=== PATIENT | male | born 1945 | race Caucasian/White ===

== ENCOUNTER 2020-08-30 09:53 | Day surgery (SDC) | payer OTHER ==
[~2020-08-30 09:53] MED LIST: Acetaminophen 325 MG Tab PO PRN; Cataract Ophth Solution EYELF ONE; Moxifloxacin 0.5% Ophth Soln 3 ML Bottle EYELF ONE; Ondansetron 4 MG/2 ML SDV IVPUSH PRN; Phenylephrine 10% Ophth Soln 5 ML Bot EYELF ONE; Phenylephrine 10% Ophth Soln 5 ML Bot EYELF PRN; Povidone-Iodine 5% Sterile Ophth Soln 30 ML Bottle EYELF ONE; Proparacaine 0.5% Ophth Soln 15 ML Bottle EYELF ONE; Sodium Chloride 0.9% 10 ML Syringe FLUSH PRN; Timolol Maleate 0.5% Ophth Soln 5 ML Bottle EYELF ONE; Tropicamide 1% Ophth Soln 15 ML Bottle EYELF ONE
[2020-08-30] MEDS ORDERED: Sodium Chloride 0.9% 10 ML Syringe IV ONE (09:54)
[2020-08-30] MEDS ORDERED: Dexamethasone 4 MG/ML SDV IV ONE (09:54)
[2020-08-30] MEDS ORDERED: Midazolam 1 MG/ML 2 ML SDV IV ONE (09:54)
[2020-08-30] MEDS ORDERED: Tetracaine HCl/PF 0.5% 4 ML Bottle EYELF ONE (10:51)
[2020-08-30] MEDS ORDERED: Lidocaine 1% 30 ML SDV ONE (10:51)
[2020-08-30] MEDS ORDERED: Povidone-Iodine 5% Sterile Ophth Soln 30 ML Bottle EYELF ONE (10:51)
[2020-08-30] MEDS ORDERED: Dexamethasone/Neomycin/Polymyxin B Ophth Oint 3.5 GM Tube EYELF ONE (10:52)
[2020-08-30] MEDS ORDERED: Chondroitin Sulfate/Hyaluronate Sodium Ophth Inj 0.75 ML Syringe EYELF ONE (10:52)
[2020-08-30] MEDS ORDERED: Diclofenac Sodium 0.1% Ophth Soln 5 ML Bottle EYELF ONE (10:52)
[2020-08-30] MEDS ORDERED: Balanced Salt Solution Ophth Irrig 500 ML Bottle IOCULAR ONE (10:52)
[2020-08-30] MEDS ORDERED: Vancomycin 500 MG SDV EYELF ONE (10:52)
[2020-08-30] MEDS ORDERED: Apraclonidine 0.5% Ophth Soln 5 ML Bot EYELF ONE (10:52)
[2020-08-30 12:25] VITALS: BP 146/72
[2020-08-30 12:26] VITALS: PULSE 49
--- NOTE | 2020-08-30 14:27 | OR ---
DATE: 08/30/2020 PREOPERATIVE DIAGNOSIS: Visually significant mixed cataract, left eye. POSTOPERATIVE DIAGNOSIS: Visually significant mixed cataract, left eye. PROCEDURE: Extracapsular cataract extraction with intraocular lens implant, left eye. ANESTHESIA: Topical/local MAC. COMPLICATIONS: None. INDICATION: Mr. Webster was seen in the clinic. He is unhappy with his vision noticing a progressive change. He has difficulty seeing television, difficulty driving, difficulty seeing street signs. His examination revealed mixed cataract. I explained options, offered cataract surgery, and I explained risks including, but not limited to infection, retinal detachment, loss of vision, need for additional surgery, and risks associated with anesthesia amongst others. We discussed implant options. He has requested a toric implant. He understands that he may still require glasses for some activities especially near work. He has voiced understanding with respect to risks and wished to proceed. OPERATIVE DESCRIPTION: After informed consent was obtained and the risks, benefits, and alternatives were explained, the patient was brought to the operative suite and topical anesthesia was administered. The patient was then prepped and draped in the sterile fashion and attention was placed on the left eye. A sterile lid speculum was placed into the left eye to allow operative exposure. A full-thickness paracentesis was made in the temporal portion of the operative eye. Preservative-free lidocaine 0.1 mL was injected into the anterior chamber followed by viscoelastic. A full-thickness corneal incision was then made into the anterior chamber. A bent needle cystotome was used to create a small heather in the anterior capsule. The capsulorrhexis forceps was then used to create a 360-degree curvilinear capsulorrhexis. The nucleus was then removed using a phacoemulsification handpiece and the remaining cortical material was then removed with irrigation and aspiration handpiece. Following removal of the cortical material, the capsular bag was then inspected and noted to be free of any holes or tears. Viscoelastic was then injected into the capsular bag and the intraocular lens was inserted into the capsular bag. The implant was oriented to correspond with preoperative corneal finnegan made with the patient in the upright position. The viscoelastic material was then removed from both the anterior and posterior chambers and from behind the IOL. The lens and capsular bag were then reinspected. The IOL was well centered and the capsular bag intact. The wound and paracentesis sites were inspected and hydrated with balanced saline solution. Both were found to be self-sealing. The intraocular pressure was assessed digitally and found to be within normal range. A good red reflex was noted at the completion of the procedure. No complications occurred during the operation. At the completion of the procedure, Maxitrol, Voltaren, and Iopidine drops were placed into the operative eye. A sterile eye shield was placed over the operative eye and the patient was transported to the postoperative recovery area having tolerated the procedure well. Postoperative instructions were given along with a postoperative appointment. The patient was advised to call with any questions or concerns. [facility] /[id number]
== END 2020-08-30 12:19 | disposition home or self-care (01) ==
LOC: DL.SDS 09:53
PROVIDERS: ATTEND Ophthalmology
DX: H26.8 Other specified cataract (principal); G47.33 Obstructive sleep apnea (adult) (pediatric); I25.10 Atherosclerotic heart disease of native coronary artery without angina pectoris; G89.29 Other chronic pain; E78.5 Hyperlipidemia, unspecified; G62.9 Polyneuropathy, unspecified; F17.210 Nicotine dependence, cigarettes, uncomplicated; Z98.890 Other specified postprocedural states; Z79.899 Other long term (current) drug therapy; Z88.8 Allergy status to other drugs, medicaments and biological substances; Z86.73 Personal history of transient ischemic attack (TIA), and cerebral infarction without residual deficits
CPT/HCPCS: 66984; A9270; J1100; J2250; J3370; V2787; 00142

== ENCOUNTER → 2020-09-27 | Day surgery (SDC) | payer OTHER ==
[~2020-09-27] MED LIST changes: +Acetaminophen/Codeine 300-30 MG Tab PO PRN; -Cataract Ophth Solution EYELF ONE; +Dexamethasone 4 MG/ML SDV IV ONE; +Midazolam 1 MG/ML 2 ML SDV IV ONE; -Moxifloxacin 0.5% Ophth Soln 3 ML Bottle EYELF ONE; -Phenylephrine 10% Ophth Soln 5 ML Bot EYELF ONE; -Phenylephrine 10% Ophth Soln 5 ML Bot EYELF PRN; +Phenylephrine 10% Ophth Soln 5 ML Bot EYERT PRN; -Povidone-Iodine 5% Sterile Ophth Soln 30 ML Bottle EYELF ONE; -Proparacaine 0.5% Ophth Soln 15 ML Bottle EYELF ONE; -Sodium Chloride 0.9% 10 ML Syringe FLUSH PRN; +Sodium Chloride 0.9% 10 ML Syringe IV ONE; -Timolol Maleate 0.5% Ophth Soln 5 ML Bottle EYELF ONE; -Tropicamide 1% Ophth Soln 15 ML Bottle EYELF ONE
[2020-09-27] MEDS: Cataract Ophth Solution EYERT ONE (08:17)
[2020-09-27] MEDS: Proparacaine 0.5% Ophth Soln 15 ML Bottle EYERT ONE (08:18)
[2020-09-27] MEDS: Moxifloxacin 0.5% Ophth Soln 3 ML Bottle EYERT ONE (08:18)
[2020-09-27] MEDS: Tropicamide 1% Ophth Soln 15 ML Bottle EYERT ONE (08:18)
[2020-09-27] MEDS: Phenylephrine 10% Ophth Soln 5 ML Bot EYERT ONE (08:19)
[2020-09-27] MEDS: Povidone-Iodine 5% Sterile Ophth Soln 30 ML Bottle EYERT ONE ×2 (08:19→09:34)
[2020-09-27] MEDS: Timolol Maleate 0.5% Ophth Soln 5 ML Bottle EYERT ONE (08:19)
[2020-09-27] MEDS: Sodium Chloride 0.9% 10 ML Syringe FLUSH PRN (08:38)
[2020-09-27] MEDS: Tetracaine HCl/PF 0.5% 4 ML Bottle EYERT ONE (09:33)
[2020-09-27] MEDS: Apraclonidine 0.5% Ophth Soln 5 ML Bot EYERT ONE (09:34)
[2020-09-27] MEDS: Diclofenac Sodium 0.1% Ophth Soln 5 ML Bottle EYERT ONE (09:34)
[2020-09-27] MEDS: Lidocaine 1% 30 ML SDV ONE (09:34)
[2020-09-27] MEDS: Chondroitin Sulfate/Hyaluronate Sodium Ophth Inj 0.75 ML Syringe EYERT ONE (09:35)
[2020-09-27] MEDS: Dexamethasone/Neomycin/Polymyxin B Ophth Oint 3.5 GM Tube EYERT ONE (09:35)
[2020-09-27] MEDS: Vancomycin 500 MG SDV ONE (09:35)
[2020-09-27] MEDS: Balanced Salt Solution Ophth Irrig 500 ML Bottle IOCULAR ONE (09:35)
[2020-09-27 11:35] VITALS: BP 156/74; PULSE 60
--- NOTE | 2020-09-28 07:34 | OR ---
DATE: 09/27/2020 PREOPERATIVE DIAGNOSIS: Visually significant mixed cataract, right eye. POSTOPERATIVE DIAGNOSIS: Visually significant mixed cataract, right eye. PROCEDURE: Extracapsular cataract extraction with intraocular lens implant, right eye. ANESTHESIA: Topical/local MAC. COMPLICATIONS: None. INDICATION: Mr. Webster was seen in the clinic. He is unhappy with his vision noticing a progressive change. His examination reveals visually significant mixed cataract. Best spectacle corrected vision at the level of 20/40. Oncoming light reveals a visual acuity of 20/200. There is difficulty with near and distance vision, difficulty with night driving, difficulty seeing street signs, difficulty seeing television. I explained options, offered cataract surgery, and I explained the risks including the potential for infection, retinal detachment, loss of vision, need for additional surgery, and risks associated with anesthesia. We discussed implant options. He has requested a toric implant. He understands that he may still require glasses for some activities, especially near work. OPERATIVE DESCRIPTION: After informed consent was obtained and the risks, benefits, and alternatives were explained, the patient was brought to the operative suite and topical anesthesia was administered. The patient was then prepped and draped in the sterile fashion and attention was placed on the right eye. A sterile lid speculum was placed into the right eye to allow operative exposure. A full-thickness paracentesis was made in the temporal portion of the operative eye. Preservative-free lidocaine 0.1 mL was injected into the anterior chamber followed by viscoelastic. A full-thickness corneal incision was then made into the anterior chamber. A bent needle cystotome was used to create a small heather in the anterior capsule. The capsulorrhexis forceps was then used to create a 360-degree curvilinear capsulorrhexis. The nucleus was then removed using a phacoemulsification handpiece and the remaining cortical material was then removed with irrigation and aspiration handpiece. Following removal of the cortical material, the capsular bag was then inspected and noted to be free of any holes or tears. Viscoelastic was then injected into the capsular bag and the intraocular lens was inserted into the capsular bag. The implant was oriented to correspond with preoperative corneal finnegan made with the patient in the upright position. The viscoelastic material was then removed from both the anterior and posterior chambers and from behind the IOL. The lens and capsular bag were then reinspected. The IOL was well centered and the capsular bag intact. The wound and paracentesis sites were inspected and hydrated with balanced saline solution. Both were found to be self-sealing. The intraocular pressure was assessed digitally and found to be within normal range. A good red reflex was noted at the completion of the procedure. No complications occurred during the operation. At the completion of the procedure, Maxitrol, Voltaren, and Iopidine drops were placed into the operative eye. A sterile eye shield was placed over the operative eye and the patient was transported to the postoperative recovery area having tolerated the procedure well. Postoperative instructions were given along with a postoperative appointment. The patient was advised to call with any questions or concerns. [facility] /[id number]
== END | disposition home or self-care (01) ==
LOC: DL.SDS 08:06
PROVIDERS: ATTEND Ophthalmology
DX: H26.8 Other specified cataract (principal); G47.33 Obstructive sleep apnea (adult) (pediatric); E78.5 Hyperlipidemia, unspecified; I10 Essential (primary) hypertension; I25.10 Atherosclerotic heart disease of native coronary artery without angina pectoris; F17.210 Nicotine dependence, cigarettes, uncomplicated; N18.9 Chronic kidney disease, unspecified; Z79.899 Other long term (current) drug therapy; Z88.8 Allergy status to other drugs, medicaments and biological substances
CPT/HCPCS: 00142; A9270-GY; J1100; J2250; J3370; V2787-GY

== ENCOUNTER 2021-07-30 10:32 | Emergency (ER) | payer OTHER ==
[2021-07-30 11:14] VITALS: PULSE 60
[2021-07-30 11:31] LABS: ANION GAP 11.8 mEq/L (7-13)
[2021-07-30] MEDS ORDERED: Lisinopril 20 MG Tab PO ONE (11:51)
[2021-07-30 11:52] LABS: CORONAVIRUS COVID-19 NAA NEGATIVE (NEGATIVE)
[2021-07-30 12:38] VITALS: BP 189/88
[2021-07-30] MEDS ORDERED: Iopamidol 755 Mg/ML 100 ML Bottle IVPUSH ONE (12:58)
== END 2021-07-30 15:54 | disposition home or self-care (01) ==
LOC: DL.ED 10:32
DX: I13.0 Hypertensive heart and chronic kidney disease with heart failure and stage 1 through stage 4 chronic kidney disease, or unspecified chronic kidney disease (principal); N18.9 Chronic kidney disease, unspecified; I50.9 Heart failure, unspecified; I25.10 Atherosclerotic heart disease of native coronary artery without angina pectoris; E78.00 Pure hypercholesterolemia, unspecified; M19.90 Unspecified osteoarthritis, unspecified site; Z86.73 Personal history of transient ischemic attack (TIA), and cerebral infarction without residual deficits; Z88.8 Allergy status to other drugs, medicaments and biological substances; Z79.02 Long term (current) use of antithrombotics/antiplatelets; Z79.899 Other long term (current) drug therapy; Z79.82 Long term (current) use of aspirin; Z72.0 Tobacco use; Z20.822 Contact with and (suspected) exposure to COVID-19
CPT/HCPCS: 0240U; 36415; 71045; 71250; 80053; 83735; 83880; 84484; 85025; 85379; 85610; 93005; 99285; A9270

== ENCOUNTER 2024-12-08 14:08 | Emergency (ER) | payer OTHER ==
[2024-12-08 15:47] VITALS: BP 140/59; PULSE 79
== END 2024-12-08 15:40 | disposition home or self-care (01) ==
LOC: DL.ED 14:08
DX: S86.812A Strain of other muscle(s) and tendon(s) at lower leg level, left leg, initial encounter (principal); I25.10 Atherosclerotic heart disease of native coronary artery without angina pectoris; E78.00 Pure hypercholesterolemia, unspecified; I12.9 Hypertensive chronic kidney disease with stage 1 through stage 4 chronic kidney disease, or unspecified chronic kidney disease; N18.9 Chronic kidney disease, unspecified; Z88.8 Allergy status to other drugs, medicaments and biological substances; Z79.82 Long term (current) use of aspirin; Z79.899 Other long term (current) drug therapy; X50.1XXA Overexertion from prolonged static or awkward postures, initial encounter
CPT/HCPCS: 73562-LT; 99283